=== PATIENT | female | born 1940 | race Caucasian/White ===

== ENCOUNTER 2016-07-15 21:34 | Emergency (ER) | payer MEDICARE ==
[~2016-07-15] VITALS: Ht 160 cm; Wt 68.0 kg
[~2016-07-15 21:34] MED LIST: AMLO5TAB2 PO; ASPI81TA31 PO; BISA10SU21 RC; BUSP10TA3 PO; BUSP15TA3 PO; DIVA125C5 PO; DOCU240C26 PO; DONE10TA21 PO; IBUP-1955 PO; LACT10SO43 PO; LEVO100T10 PO; LORA1TAB PO; MAG30ORA PO; MEMA5TAB PO; MENT71OI TP; MULT-74 PO; OMEG1CAP PO; PRAM0.253 PO; PSYL1PAC8 PO; QUET25TA PO; TRAZ-144 PO; [UNRECOGNIZED DRUG - CODE] PO
[2016-07-15] MEDS ORDERED: TDAP DIPH,PERTUSS,TET VAC/PF 0.5 ML DISP.SYRIN IM ONE ×2 (22:30→23:35)
--- NOTE | 2016-07-15 22:45 | NUR ---
Patient out of unit for ct scan via [place]
--- NOTE | 2016-07-15 22:56 | NUR ---
Pt back from ct scan with no distress noted
--- NOTE | 2016-07-15 23:30 | NUR ---
ETA of med response to take Pt back to [facility] 30mins
--- NOTE | 2016-07-15 23:49 | NUR ---
Gave SBAR report to Med Response Team who will take Pt back to [facility]
--- NOTE | 2016-07-15 23:57 | NUR ---
Patient discharged to home in stable conditon with med response taking Pt home. Written and verbal after care instructions given.
[2016-07-15 23:59] VITALS: BP 159/82
== END 2016-07-16 | disposition home or self-care (01) ==
LOC: ER 21:34
DX: S09.90XA Unspecified injury of head, initial encounter (principal); S00.81XA Abrasion of other part of head, initial encounter; I10 Essential (primary) hypertension; F03.90 Unspecified dementia, unspecified severity, without behavioral disturbance, psychotic disturbance, mood disturbance, and anxiety; F31.9 Bipolar disorder, unspecified; E03.9 Hypothyroidism, unspecified; Z79.82 Long term (current) use of aspirin; W05.0XXA Fall from non-moving wheelchair, initial encounter; Y93.89 Activity, other specified; Y92.89 Other specified places as the place of occurrence of the external cause; Y99.8 Other external cause status
CPT/HCPCS: 70450; 72125; 90715; A4663